=== PATIENT | female | born 1985 | race Hispanic/Latino ===

== ENCOUNTER 2018-02-01 15:10 | Observation (INO) | payer MEDICAID, OTHER ==
[~2018-02-01] VITALS: Ht 167.6 cm; Wt 61.2 kg
[2018-02-01 16:18] LABS: BASOPHILS % (AUTO) 1.3 % (0.0-5.0); EOSINOPHILS % (AUTO) 1.7 % (0.0-8.0); LYMPHOCYTES % (AUTO) 26.2 % (21.0-51.0); MEAN CORPUSCULAR HGB CONC 29.2 g/dL (32.0-36.0); MEAN CORPUSCULAR VOLUME 58.3 fL (79-99); MONOCYTES % (AUTO) 4.7 % (3.0-13.0); NEUTROPHILS % (AUTO) 66.1 % (40.0-77.0); NUCLEATED RED BLOOD CELLS 0.1 % (0.0-0.19); PLATELET COUNT (AUTO) 626 K/uL (130-400); RED BLOOD CELL COUNT(AUTO) 3.58 MIL/uL (4.00-5.50); RED CELL DISTRIBUTION WIDTH 21.8 % (11.0-15.5); WHITE BLOOD COUNT (AUTO) 9.6 K/uL (4.8-10.8)
[2018-02-01 16:21] LABS: HEMATOCRIT 20.9 % (36-48)
[2018-02-01 16:34] LABS: CARBON DIOXIDE 24 mmol/L (21-32); CHLORIDE 109 mmol/L (101-111); CREATININE 0.6 mg/dL (0.5-1.5); GLOMERULAR FILTR. RATE CALC 124 mL/min (>60); GLUCOSE,RANDOM 97 mg/dL (70-105); POTASSIUM 3.9 mmol/L (3.5-5.1); SODIUM SERUM 142 mmol/L (136-145); UREA NITROGEN, BLOOD 7 mg/dL (7-18)
[2018-02-01 16:47] LABS: ALANINE AMINOTRANSFERASE 17 U/L (12-78); ALBUMIN 3.4 g/dL (3.5-5.0); ASPARTATE AMINOTRANSFERASE 23 U/L (10-37); BILIRUBIN,TOTAL 0.7 mg/dL (0.2-1.0); CREATINE KINASE MB < 0.5 ng/mL (0.5-3.6); CREATINE KINASE, TOTAL 68 U/L (21-232); THYROID STIMULATING HORMONE 0.77 uIU/mL (0.36-3.74); TOTAL PROTEIN, SERUM 7.1 g/dL (6.0-8.3)
[2018-02-01 16:49] LABS: APPEARANCE,URINE Clear (CLEAR); BILIRUBIN,URINE Negative (NEGATIVE); COLOR,URINE Yellow (YELLOW); GLUCOSE, URINE (UA) Negative (NEGATIVE); KETONES,URINE Negative (NEGATIVE); LEUKOCYTE ESTERASE ,URINE Small (NEGATIVE); NITRATE,URINE Negative (NEGATIVE); OCCULT BLOOD,URINE Negative (NEGATIVE); PROTEIN,URINE Negative (NEGATIVE)
[2018-02-01 16:50] LABS: HCG,QUAL RESULT NEGATIVE (NEGATIVE)
[2018-02-01 16:57] LABS: AMPHET/METH SCREEN,URINE NEGATIVE (NEGATIVE); BARBITURATE SCREEN, URINE NEGATIVE (NEGATIVE); BENZODIAZEPINES SCREEN,URINE POSITIVE (NEGATIVE); CANNABINOID SCREEN,URINE NEGATIVE (NEGATIVE); COCAINE SCREEN,URINE NEGATIVE (NEGATIVE); OPIATE SCREEN,URINE POSITIVE (NEGATIVE); PHENCYCLIDINE SCREEN,URINE NEGATIVE (NEGATIVE)
[2018-02-01 16:58] LABS: BACTERIA,URINE Rare /HPF (None Seen); RBC,URINE 0-1 /HPF (0-1)
[2018-02-01 17:36] LABS: INR 0.98 (0.85-1.15); PARTIAL THROMBOPLASTIN TIME 26.6 SEC (26.3-35.5); PROTHROMBIN TIME 10.3 SEC (9.6-11.6)
[2018-02-01 20:22] VITALS: BP 143/86
[2018-02-01] MEDS ORDERED: ACETAMINOPHEN-CODEINE 300/30MG TAB PO SCH (21:30)
[2018-02-01] MEDS ORDERED: ACETAMINOPHEN-CODEINE 300/30MG TAB PO PRN (21:30)
[2018-02-01] MEDS ORDERED: ACETAMINOPHEN EXTRA STRENGTH 500 MG TABLET PO SCH (21:30)
[2018-02-01] MEDS ORDERED: DIPHENHYDRAMINE HCL 25 MG CAPSULE PO SCH (21:30)
[2018-02-02 00:30] VITALS: BP 131/82
[2018-02-02 04:00] VITALS: BP 127/81
[2018-02-02 05:57] LABS: HEMATOCRIT 27.2 % (36-48)
== END 2018-02-02 06:50 | disposition home or self-care (01) ==
LOC: EDH 15:10 → EDHIP 15:11 → WSH 20:15
PROVIDERS: ADMIT Obstetrics & Gynecology; ATTEND Obstetrics & Gynecology
DX: M79.89 Other specified soft tissue disorders (principal); M41.9 Scoliosis, unspecified; F41.9 Anxiety disorder, unspecified; G47.00 Insomnia, unspecified; F10.20 Alcohol dependence, uncomplicated; F17.210 Nicotine dependence, cigarettes, uncomplicated
CPT/HCPCS: 36415; 36430; 71046; 80053; 80305; 81001; 81025; 82550; 82553; 83880; 84443; 84484; 85014; 85018; 85025; 85610; 85730; 86850; 86870; 86900; 86901; 86905; 86922; G0378; J7030; P9016; Q0163

== ENCOUNTER 2019-02-09 20:54 | Emergency (ER) | payer MEDICAID ==
[~2019-02-09 20:54] MED LIST: HYDR-4453 PO
[2019-02-09 21:52] LABS: BASOPHILS % (AUTO) 0.7 % (0.0-5.0); EOSINOPHILS % (AUTO) 3.7 % (0.0-8.0); HEMATOCRIT 26.6 % (36-48); LYMPHOCYTES % (AUTO) 42.6 % (21.0-51.0); MEAN CORPUSCULAR HEMOGLOBIN 22.2 pg (27.0-33.0); MEAN CORPUSCULAR HGB CONC 29.7 g/dL (32.0-36.0); MEAN CORPUSCULAR VOLUME 74.6 fL (79-99); MONOCYTES % (AUTO) 9.9 % (3.0-13.0); NEUTROPHILS % (AUTO) 43.1 % (40.0-77.0); NUCLEATED RED BLOOD CELLS 0.2 % (0.0-0.19); PLATELET COUNT (AUTO) 354 K/uL (130-400); RED BLOOD CELL COUNT(AUTO) 3.57 MIL/uL (4.00-5.50); RED CELL DISTRIBUTION WIDTH 20.2 % (11.0-15.5); WHITE BLOOD COUNT (AUTO) 5.4 K/uL (4.8-10.8)
[2019-02-09 21:59] LABS: APPEARANCE,URINE Clear (CLEAR); BILIRUBIN,URINE Negative (NEGATIVE); COLOR,URINE Yellow (YELLOW); GLUCOSE, URINE (UA) Negative (NEGATIVE); KETONES,URINE Negative (NEGATIVE); LEUKOCYTE ESTERASE ,URINE Negative (NEGATIVE); NITRATE,URINE Negative (NEGATIVE); OCCULT BLOOD,URINE Negative (NEGATIVE); PH,URINE 7.5 (5.0-8.0); PROTEIN,URINE Negative (NEGATIVE); UROBILINOGEN,URINE 0.2 mg/dL (0.2-1.0)
[2019-02-09 22:03] LABS: CREATININE 0.6 mg/dL (0.5-1.5); POTASSIUM 3.8 mmol/L (3.5-5.1)
[2019-02-09 22:07] LABS: ALBUMIN 3.3 g/dL (3.5-5.0); BILIRUBIN,TOTAL 0.7 mg/dL (0.2-1.0); TOTAL PROTEIN, SERUM 7.3 g/dL (6.0-8.3)
== END 2019-02-09 23:06 | disposition home or self-care (01) ==
LOC: EDH 20:54
DX: K59.00 Constipation, unspecified (principal); D53.9 Nutritional anemia, unspecified; N92.0 Excessive and frequent menstruation with regular cycle; F11.20 Opioid dependence, uncomplicated; F41.9 Anxiety disorder, unspecified; Z90.49 Acquired absence of other specified parts of digestive tract
CPT/HCPCS: 36415; 80053; 81003; 81025; 83690; 85025

== ENCOUNTER 2019-09-08 20:44 | Emergency (ER) | payer MEDICAID ==
[2019-09-08] MEDS ORDERED: SODIUM CHLORIDE 0.9% 1000ML 1,000 ML IV ONE (21:24)
[2019-09-08 21:31] LABS: BASOPHILS % (AUTO) 0.7 % (0.0-5.0); EOSINOPHILS % (AUTO) 0.5 % (0.0-8.0); HEMATOCRIT 32.1 % (36-48); LYMPHOCYTES % (AUTO) 23.9 % (21.0-51.0); MEAN CORPUSCULAR HEMOGLOBIN 20.2 pg (27.0-33.0); MEAN CORPUSCULAR HGB CONC 30.5 g/dL (32.0-36.0); MONOCYTES % (AUTO) 3.9 % (3.0-13.0); PLATELET COUNT (AUTO) 497 K/uL (130-400); RED BLOOD CELL COUNT(AUTO) 4.86 MIL/uL (4.00-5.50); RED CELL DISTRIBUTION WIDTH 19.3 % (11.0-15.5); WHITE BLOOD COUNT (AUTO) 11.2 K/uL (4.8-10.8)
[2019-09-08 21:32] LABS: APPEARANCE,URINE Clear (CLEAR); BILIRUBIN,URINE Negative (NEGATIVE); COLOR,URINE Yellow (YELLOW); GLUCOSE, URINE (UA) Negative (NEGATIVE); KETONES,URINE Trace mg/dL (NEGATIVE); LEUKOCYTE ESTERASE ,URINE Moderate (NEGATIVE); NITRATE,URINE Positive (NEGATIVE); OCCULT BLOOD,URINE Negative (NEGATIVE); PH,URINE 6.5 (5.0-8.0); PROTEIN,URINE Negative (NEGATIVE)
[2019-09-08 21:40] LABS: AMPHET/METH SCREEN,URINE NEGATIVE (NEGATIVE); BARBITURATE SCREEN, URINE NEGATIVE (NEGATIVE); BENZODIAZEPINES SCREEN,URINE NEGATIVE (NEGATIVE); CANNABINOID SCREEN,URINE NEGATIVE (NEGATIVE); COCAINE SCREEN,URINE NEGATIVE (NEGATIVE); HCG,QUAL RESULT NEGATIVE (NEGATIVE); OPIATE SCREEN,URINE POSITIVE (NEGATIVE); PHENCYCLIDINE SCREEN,URINE NEGATIVE (NEGATIVE)
[2019-09-08 21:41] LABS: BACTERIA,URINE Few /HPF (None Seen); RBC,URINE 0-1 /HPF (0-1)
[2019-09-08 21:42] LABS: MUCUS,URINE Few LPF (None Seen); SQUAMOUS EPITHELIAL CELL,UR Few /HPF (0-2)
[2019-09-08 21:54] LABS: INR 1.01 (0.85-1.15); PARTIAL THROMBOPLASTIN TIME 23.5 SEC (26.3-35.5); PROTHROMBIN TIME 10.6 SEC (9.6-11.6)
[2019-09-08 21:58] LABS: CREATININE 0.7 mg/dL (0.5-1.5); TOTAL PROTEIN, SERUM 9.2 g/dL (6.0-8.3)
[2019-09-08] MEDS ORDERED: CEFTRIAXONE SODIUM 1 GM ONE (22:21)
[2019-09-08] MEDS ORDERED: POTASSIUM CHLORIDE 20 MEQ ERTAB PO ONE (22:24)
== END 2019-09-08 23:02 | disposition home or self-care (01) ==
LOC: EDH 20:44
DX: N39.0 Urinary tract infection, site not specified (principal); R53.1 Weakness; E87.6 Hypokalemia; D64.89 Other specified anemias; R42 Dizziness and giddiness; F41.9 Anxiety disorder, unspecified; F32.9 Major depressive disorder, single episode, unspecified
CPT/HCPCS: 36415; 80053; 80305; 81001; 81025; 82150; 82550; 83690; 84443; 84484; 85025; 85610; 85730; 87077; 87088; 87186; 93005; 96361; 96374; 99285; J0696; J7030

== ENCOUNTER 2020-01-04 13:14 | Inpatient (IN) | payer MEDICAID, OTHER ==
[~2020-01-04] VITALS: Ht 167.6 cm; Wt 47.7 kg
[2020-01-04 13:54] LABS: APPEARANCE,URINE Clear (CLEAR); BILIRUBIN,URINE Negative (NEGATIVE); COLOR,URINE Dark Yellow (YELLOW); GLUCOSE, URINE (UA) Negative (NEGATIVE); KETONES,URINE 15 mg/dL (NEGATIVE); LEUKOCYTE ESTERASE ,URINE Negative (NEGATIVE); NITRATE,URINE Negative (NEGATIVE); OCCULT BLOOD,URINE Negative (NEGATIVE); PH,URINE 6.5 (5.0-8.0); PROTEIN,URINE Trace mg/dL (NEGATIVE)
[2020-01-04 13:55] LABS: HCG,QUAL RESULT NEGATIVE (NEGATIVE)
[2020-01-04 13:57] LABS: BASOPHILS % (AUTO) 0.5 % (0.0-5.0); EOSINOPHILS % (AUTO) 0.2 % (0.0-8.0); HEMATOCRIT 27.9 % (36-48); MEAN CORPUSCULAR HEMOGLOBIN 15.1 pg (27.0-33.0); MEAN CORPUSCULAR HGB CONC 25.8 g/dL (32.0-36.0); MEAN CORPUSCULAR VOLUME 58.6 fL (79-99); MONOCYTES % (AUTO) 5.2 % (3.0-13.0); NEUTROPHILS % (AUTO) 63.9 % (40.0-77.0); PLATELET COUNT (AUTO) 253 K/uL (130-400); RED BLOOD CELL COUNT(AUTO) 4.76 MIL/uL (4.00-5.50); RED CELL DISTRIBUTION WIDTH 20.1 % (11.0-15.5); WHITE BLOOD COUNT (AUTO) 4.3 K/uL (4.8-10.8)
[2020-01-04 14:01] LABS: AMPHET/METH SCREEN,URINE POSITIVE (NEGATIVE); BARBITURATE SCREEN, URINE NEGATIVE (NEGATIVE); BENZODIAZEPINES SCREEN,URINE POSITIVE (NEGATIVE); CANNABINOID SCREEN,URINE NEGATIVE (NEGATIVE); COCAINE SCREEN,URINE NEGATIVE (NEGATIVE); OPIATE SCREEN,URINE POSITIVE (NEGATIVE); PHENCYCLIDINE SCREEN,URINE NEGATIVE (NEGATIVE)
[2020-01-04 14:07] LABS: CARBON DIOXIDE 26 mmol/L (21-32); CHLORIDE 101 mmol/L (101-111); CREATININE 0.6 mg/dL (0.5-1.5); GLOMERULAR FILTR. RATE CALC 123 mL/min (>60); GLUCOSE,RANDOM 119 mg/dL (70-105); POTASSIUM 3.6 mmol/L (3.5-5.1); SODIUM SERUM 136 mmol/L (136-145); UREA NITROGEN, BLOOD 9 mg/dL (7-18)
[2020-01-04 14:12] LABS: ACETAMINOPHEN 9 mcg/mL (10-30); ALANINE AMINOTRANSFERASE 119 U/L (12-78); ALBUMIN 4.3 g/dL (3.5-5.0); ASPARTATE AMINOTRANSFERASE 364 U/L (10-37); SALICYLATE 2.9 mg/dL (2.8-20.0); TOTAL PROTEIN, SERUM 8.4 g/dL (6.0-8.3)
[2020-01-04 14:13] LABS: BACTERIA,URINE Rare /HPF (None Seen); MUCUS,URINE Few LPF (None Seen); RBC,URINE 0-1 /HPF (0-1); SQUAMOUS EPITHELIAL CELL,UR Rare /HPF (0-2); WBC,URINE 0-1 /HPF (0-1)
[2020-01-04 14:27] LABS: ALCOHOL, BLOOD < 3 mg/dL (0-10)
[2020-01-04] MEDS ORDERED: WATER IV SCH ×3 (16:00→21:00)
[2020-01-04] MEDS ORDERED: DEXTROSE 5% IV SCH ×3 (16:00→21:00)
[2020-01-04] MEDS ORDERED: ACETYLCYSTEINE IV SCH ×3 (16:00→21:00)
[2020-01-04] MEDS ORDERED: SODIUM CHLORIDE 0.9% 1000ML 1,000 ML IV SCH (20:05)
[2020-01-04] MEDS ORDERED: ACETAMINOPHEN 325 MG TAB PO PRN ×2 (20:15)
[2020-01-04] MEDS ORDERED: ONDANSETRON HCL 4 MG/2 ML VIAL IV PRN (20:15)
[2020-01-04] MEDS ORDERED: LORAZEPAM 2 MG/ML 1 ML VIAL ONE (20:27)
[2020-01-04] MEDS: FAMOTIDINE/PF 20 MG/2 ML VIAL IV SCH (21:00)
[2020-01-04] MEDS ORDERED: LORAZEPAM 2 MG/ML 1 ML VIAL IM PRN (21:00)
[2020-01-04] MEDS ORDERED: CHLORDIAZEPOXIDE HCL 25 MG CAP ONE (21:16)
[2020-01-04] MEDS ORDERED: LEVETIRACETAM 500 MG TABLET PO ONE (21:16)
[2020-01-04 21:36] LABS: POTASSIUM 3.5 mmol/L (3.5-5.1)
[2020-01-04 22:00] LABS: CREATININE 0.8 mg/dL (0.5-1.5)
[2020-01-05 00:53] LABS: HEMATOCRIT 26.9 % (36-48); MEAN CORPUSCULAR HEMOGLOBIN 15.4 pg (27.0-33.0); MEAN CORPUSCULAR HGB CONC 26.8 g/dL (32.0-36.0); MEAN CORPUSCULAR VOLUME 57.5 fL (79-99); PLATELET COUNT (AUTO) 271 K/uL (130-400); RED BLOOD CELL COUNT(AUTO) 4.68 MIL/uL (4.00-5.50); RED CELL DISTRIBUTION WIDTH 19.5 % (11.0-15.5); WHITE BLOOD COUNT (AUTO) 4.8 K/uL (4.8-10.8)
[2020-01-05 01:04] LABS: ALBUMIN 3.8 g/dL (3.5-5.0); BILIRUBIN,DIRECT 0.2 mg/dL (0.0-0.3); BILIRUBIN,TOTAL 0.8 mg/dL (0.2-1.0); TOTAL PROTEIN, SERUM 7.9 g/dL (6.0-8.3)
[2020-01-05 01:15] LABS: INR 1.07 (0.85-1.15); PROTHROMBIN TIME 11.2 SEC (9.6-11.6)
[2020-01-05 06:13] LABS: AMMONIA 13 umol/L (11-32)
[2020-01-05 06:23] LABS: ALANINE AMINOTRANSFERASE 93 U/L (12-78); ALBUMIN 3.7 g/dL (3.5-5.0); ASPARTATE AMINOTRANSFERASE 100 U/L (10-37); BILIRUBIN,DIRECT 0.2 mg/dL (0.0-0.3); BILIRUBIN,TOTAL 0.8 mg/dL (0.2-1.0); CARBON DIOXIDE 22 mmol/L (21-32); CHLORIDE 100 mmol/L (101-111); CREATININE 0.5 mg/dL (0.5-1.5); GLOMERULAR FILTR. RATE CALC 152 mL/min (>60); GLUCOSE,RANDOM 154 mg/dL (70-105); SODIUM SERUM 136 mmol/L (136-145); TOTAL PROTEIN, SERUM 7.4 g/dL (6.0-8.3); UREA NITROGEN, BLOOD 5 mg/dL (7-18)
[2020-01-05 06:24] LABS: ACETAMINOPHEN < 1 mcg/mL (10-30)
[2020-01-05] MEDS ORDERED: POTASSIUM CHLORIDE 10% ELIXIR 20 MEQ/15 ML UDCUP PO PRN (06:30)
[2020-01-05] MEDS ORDERED: LIDOCAINE HCL-MPF 1% 2ML VIAL IJ PRN (06:30)
[2020-01-05] MEDS ORDERED: POTASSIUM CHLORIDE 20MEQ/100ML 100 ML IV PRN (06:30)
[2020-01-05] MEDS ORDERED: LIDOCAINE HCL-MPF 1% 2ML VIAL ONE (06:34)
[2020-01-05] MEDS ORDERED: POTASSIUM CHLORIDE 20MEQ/100ML 100 ML IV ONE (06:34)
[2020-01-05 07:05] LABS: BASOPHILS % (AUTO) 0.4 % (0.0-5.0); EOSINOPHILS % (AUTO) 0.2 % (0.0-8.0); LYMPHOCYTES % (AUTO) 37.3 % (21.0-51.0); MEAN CORPUSCULAR HEMOGLOBIN 15.3 pg (27.0-33.0); MEAN CORPUSCULAR HGB CONC 26.8 g/dL (32.0-36.0); MEAN CORPUSCULAR VOLUME 57.1 fL (79-99); MONOCYTES % (AUTO) 7.7 % (3.0-13.0); NEUTROPHILS % (AUTO) 54.2 % (40.0-77.0); PLATELET COUNT (AUTO) 238 K/uL (130-400); RED BLOOD CELL COUNT(AUTO) 4.38 MIL/uL (4.00-5.50); RED CELL DISTRIBUTION WIDTH 19.8 % (11.0-15.5); WHITE BLOOD COUNT (AUTO) 4.5 K/uL (4.8-10.8)
[2020-01-05] MEDS ORDERED: CHLORDIAZEPOXIDE HCL 25 MG CAP PO PRN (07:30)
[2020-01-05] MEDS: THIAMINE HCL 100 MG, FOLIC ACID 1 MG, M.V.I. IV [ADULT] 10 ML in SODIUM CHLORIDE 0.9% 1... IV SCH (07:30)
[2020-01-05] MEDS ORDERED: LORAZEPAM 2 MG/ML 1 ML VIAL IVP PRN ×3 (07:30→17:45)
[2020-01-05] MEDS ORDERED: PHARMACY COMMUNICATION MISC PRN (07:30)
[2020-01-05 08:05] LABS: MAGNESIUM 1.9 mg/dL (1.80-2.40); PHOSPHORUS 2.5 mg/dL (2.5-4.9)
[2020-01-05] MEDS ORDERED: CHLORDIAZEPOXIDE HCL 25 MG CAP ONE ×2 (08:20→15:21)
[2020-01-05] MEDS: FAMOTIDINE/PF 20 MG/2 ML VIAL IV SCH ×2 (09:00→20:53)
[2020-01-05] MEDS: FOLIC ACID 1 MG TABLET PO SCH (09:00)
[2020-01-05] MEDS: THIAMINE HCL 100 MG/ML 2ML VIAL IM SCH (09:00)
[2020-01-05] MEDS: MULTIVITAMIN TABLET PO SCH (09:00)
[2020-01-05 09:24] LABS: CREATINE KINASE, TOTAL 41 U/L (21-232); GAMMA GLUTAMYL TRANSFERASE 248 U/L (5-85)
[2020-01-05] MEDS ORDERED: SODIUM CHLORIDE 0.9% 500ML 500 ML IV ONE (13:31)
[2020-01-05 16:10] VITALS: BP 106/69
[2020-01-05 17:23] LABS: HEMATOCRIT 28.4 % (36-48); MEAN CORPUSCULAR HEMOGLOBIN 16.9 pg (27.0-33.0); MEAN CORPUSCULAR HGB CONC 27.5 g/dL (32.0-36.0); MEAN CORPUSCULAR VOLUME 61.6 fL (79-99); PLATELET COUNT (AUTO) 236 K/uL (130-400); RED BLOOD CELL COUNT(AUTO) 4.61 MIL/uL (4.00-5.50); RED CELL DISTRIBUTION WIDTH 24.4 % (11.0-15.5); WHITE BLOOD COUNT (AUTO) 4.3 K/uL (4.8-10.8)
[2020-01-05 17:49] LABS: ALBUMIN 3.6 g/dL (3.5-5.0); CREATININE 0.6 mg/dL (0.5-1.5); TOTAL PROTEIN, SERUM 7.6 g/dL (6.0-8.3)
[2020-01-05] MEDS: POTASSIUM CHLORIDE 20 MEQ ERTAB PO PRN ×3 (18:01→23:14)
[2020-01-05 19:30] VITALS: BP 110/63
[2020-01-05] MEDS ORDERED: IBUPROFEN 200 MG TAB PO PRN (20:45)
[2020-01-05] MEDS: IBUPROFEN 600 MG TABLET ONE ×2 (20:55→22:38)
[2020-01-05 23:00] VITALS: BP 109/59
[2020-01-06 03:21] VITALS: BP 91/53
[2020-01-06 04:22] LABS: BASOPHILS % (AUTO) 0.4 % (0.0-5.0); EOSINOPHILS % (AUTO) 1.2 % (0.0-8.0); HEMATOCRIT 27.2 % (36-48); LYMPHOCYTES % (AUTO) 61.1 % (21.0-51.0); MEAN CORPUSCULAR HEMOGLOBIN 17.3 pg (27.0-33.0); MEAN CORPUSCULAR HGB CONC 27.9 g/dL (32.0-36.0); MEAN CORPUSCULAR VOLUME 61.8 fL (79-99); MONOCYTES % (AUTO) 9.3 % (3.0-13.0); PLATELET COUNT (AUTO) 199 K/uL (130-400); RED CELL DISTRIBUTION WIDTH 24.1 % (11.0-15.5)
[2020-01-06 04:45] LABS: ALBUMIN 3.5 g/dL (3.5-5.0); BILIRUBIN,TOTAL 0.8 mg/dL (0.2-1.0); CREATININE 0.5 mg/dL (0.5-1.5); POTASSIUM 3.7 mmol/L (3.5-5.1); TOTAL PROTEIN, SERUM 7.1 g/dL (6.0-8.3)
[2020-01-06] MEDS: POTASSIUM CHLORIDE 20 MEQ ERTAB PO PRN (06:10)
[2020-01-06 08:00] VITALS: BP 110/62
[2020-01-06] MEDS: MULTIVITAMIN TABLET PO SCH (11:05)
[2020-01-06] MEDS: FAMOTIDINE/PF 20 MG/2 ML VIAL IV SCH ×2 (11:05→22:38)
[2020-01-06] MEDS: THIAMINE HCL 100 MG, FOLIC ACID 1 MG, M.V.I. IV [ADULT] 10 ML in SODIUM CHLORIDE 0.9% 1... IV SCH (11:05)
[2020-01-06] MEDS: FOLIC ACID 1 MG TABLET PO SCH (11:05)
[2020-01-06] MEDS: THIAMINE HCL 100 MG/ML 2ML VIAL IM SCH (11:06)
[2020-01-06 11:57] VITALS: BP 111/75
--- NOTE | 2020-01-06 13:45 | NUR ---
INITIAL Patient lives with boyfriend, Raphael Day, [phone]. No home services or DME. Patient is able to complete ADL's independently Pharmacy is [facility] in [place]. DCP is home. Patient has no insurance or benefits. She is a [place] citizen and works. Patient was provided with community resources for post hospitalization follow up. Patient was also provided with Good RX card for prescriptions and educated on [employer] $4 medication program and [facility] $5 medication program. Patient is being assisted by [employer] for financial matters. Addendum: 01/06/20 at 1348 by DOMI CHOWDHURY Amended: Links added.
--- NOTE | 2020-01-06 13:51 | NUR ---
Positive Drug Screen/Suicide attempt SW met with patient to discuss history of drug abuse and suicide attempt. Patient denies attempting to harm self. She stated that she had taken Vicodin which is prescribed by her pain management doctor and became disoriented. Patient did admit that she suffers from depression and anxiety and had been dx in the past with Major Depression. Patient reports that she was receiving treatment from [facility] ([facility])last year and was last seen about 6 months ago. Patient denies suicidal/homicidal ideations. She also denies auditory/visual hallucinations. Patient reports that her mother also suffered from depression but there is no hx of suicide attempts from anyone in her family. Patient continues on a 1:1 observation at this time. Patient only admits to taking Vicodin for her back pain. Denies other drug use. Patient's boyfriend at bedside also states that patient did not want to harm self and everything was a "big misunderstanding". SW informed patient and her boyfriend, Raphael Day, that once patient is medically cleared [facility] screener would come by to screen her for possible inpatient psychiatric hospitalization. Patient in agreement. SW will continue to follow up with patient as needed.
[2020-01-06 15:47] VITALS: BP 110/62
[2020-01-06 19:36] VITALS: BP 109/68
[2020-01-06 21:37] LABS: RETICULOCYTE % (AUTO) 0.47 % (0.42-2.23)
[2020-01-06 23:55] VITALS: BP 103/59
[2020-01-07] VITALS (7 sets, daily range): BP systolic 102–134; BP diastolic 54–70
[2020-01-07 05:25] LABS: HEMATOCRIT 27.4 % (36-48); MEAN CORPUSCULAR HEMOGLOBIN 16.7 pg (27.0-33.0); NUCLEATED RED BLOOD CELLS 0.3 % (0.0-0.19); PLATELET COUNT (AUTO) 192 K/uL (130-400); RED BLOOD CELL COUNT(AUTO) 4.42 MIL/uL (4.00-5.50); RED CELL DISTRIBUTION WIDTH 23.9 % (11.0-15.5); WHITE BLOOD COUNT (AUTO) 6.3 K/uL (4.8-10.8)
[2020-01-07 05:52] LABS: ALBUMIN 3.3 g/dL (3.5-5.0); BILIRUBIN,TOTAL 0.5 mg/dL (0.2-1.0); CREATININE 0.5 mg/dL (0.5-1.5); POTASSIUM 3.2 mmol/L (3.5-5.1); TOTAL PROTEIN, SERUM 6.9 g/dL (6.0-8.3)
[2020-01-07 06:54] LABS: LYMPHOCYTES % (MANUAL) 58 % (22-44); MONOCYTES % (MANUAL) 4 % (2-9); SEGMENTED NEUTROPHILS % 38 % (40-70)
[2020-01-07 06:55] LABS: MAN.DIFF COMMENT-IMPRESSION MANUAL DIFFERENTIAL; PLATELET MORPHOLOGY COMMENT ADEQUATE
[2020-01-07] MEDS: THIAMINE HCL 100 MG/ML 2ML VIAL IM SCH (09:00)
[2020-01-07] MEDS: FOLIC ACID 1 MG TABLET PO SCH (09:00)
[2020-01-07] MEDS: MULTIVITAMIN TABLET PO SCH (11:23)
[2020-01-07] MEDS: FAMOTIDINE/PF 20 MG/2 ML VIAL IV SCH ×2 (11:23→20:38)
[2020-01-07] MEDS: THIAMINE HCL 100 MG, FOLIC ACID 1 MG, M.V.I. IV [ADULT] 10 ML in SODIUM CHLORIDE 0.9% 1... IV SCH (11:24)
[2020-01-07] MEDS: LEVETIRACETAM 250 MG TABLET PO SCH ×2 (15:06→20:39)
--- NOTE | 2020-01-07 16:30 | NUR ---
Dr Dey Office has been called to notify him of consult. Machine answered and stated that the office is closed. No other numbers for Dr. Dey are available at this time
--- NOTE | 2020-01-07 16:40 | NUR ---
Dr. Arndt's office has been called to be notified of consult at this time
--- NOTE | 2020-01-07 16:45 | NUR ---
I have spoken with Dr. Arndt in regards to Patient status. Dr. Arndt stated he will see patient as an out patient and recomends focusing on patient's primary diagnosis while in the hospital.
[2020-01-07] MEDS: LORAZEPAM 2 MG/ML 1 ML VIAL IVP PRN (20:39)
[2020-01-07] MEDS ORDERED: LEVETIRACETAM 250 MG TABLET PO SCH (21:00)
[2020-01-08 04:19] LABS: BASOPHILS % (AUTO) 0.4 % (0.0-5.0); EOSINOPHILS % (AUTO) 2.3 % (0.0-8.0); HEMATOCRIT 25.9 % (36-48); LYMPHOCYTES % (AUTO) 44.9 % (21.0-51.0); MEAN CORPUSCULAR HEMOGLOBIN 17.2 pg (27.0-33.0); MEAN CORPUSCULAR HGB CONC 27.8 g/dL (32.0-36.0); MONOCYTES % (AUTO) 5.3 % (3.0-13.0); NEUTROPHILS % (AUTO) 46.6 % (40.0-77.0); PLATELET COUNT (AUTO) 137 K/uL (130-400); RED BLOOD CELL COUNT(AUTO) 4.18 MIL/uL (4.00-5.50); RED CELL DISTRIBUTION WIDTH 24.7 % (11.0-15.5); WHITE BLOOD COUNT (AUTO) 7.8 K/uL (4.8-10.8)
[2020-01-08 04:47] LABS: ALBUMIN 3.2 g/dL (3.5-5.0); BILIRUBIN,TOTAL 0.5 mg/dL (0.2-1.0); CREATININE 0.5 mg/dL (0.5-1.5); POTASSIUM 3.3 mmol/L (3.5-5.1); TOTAL PROTEIN, SERUM 6.6 g/dL (6.0-8.3)
[2020-01-08 05:33] VITALS: BP 98/64
[2020-01-08 05:58] VITALS: BP 115/72
[2020-01-08] MEDS: LORAZEPAM 2 MG/ML 1 ML VIAL IVP PRN (05:58)
[2020-01-08 05:59] VITALS: BP 115/72
[2020-01-08] MEDS: POTASSIUM CHLORIDE 20 MEQ ERTAB PO PRN ×3 (06:49→11:49)
[2020-01-08 07:52] VITALS: BP 114/74
--- NOTE | 2020-01-08 08:15 | NUR ---
AM ASSESSMENT PT LAYING IN BED, WATCHING TV. A/O X 3. NO SOB. NO DISTRESS NOTED. DENIES CHEST PAIN OR DISCOMFORT. DENIES PALPITATIONS. TELE: SR. DENIES N/V AND/OR DIARRHEA. UP AD MEIR. INSTRUCTED TO CALL FOR ASSISTANCE. CALL MARICRUZ W/IN REACH. CURRENT 1:1 SITTER, SITTER @ BEDSIDE.
[2020-01-08] MEDS: MULTIVITAMIN TABLET PO SCH (08:34)
[2020-01-08] MEDS: LEVETIRACETAM 250 MG TABLET PO SCH (08:35)
[2020-01-08] MEDS: LORAZEPAM 1 MG TABLET PO PRN ×2 (08:43→16:35)
[2020-01-08] MEDS ORDERED: FAMOTIDINE 20MG TAB 20 MG TAB PO SCH (09:00)
[2020-01-08] MEDS ORDERED: COMPOUND IV MISC 1 EACH IVSOLN MISC PRN (09:30)
[2020-01-08] MEDS ORDERED: IRON SUCROSE COMPLEX 100 MG in SODIUM CHLORIDE 0.9% 50 ML IV SCH (10:00)
[2020-01-08] MEDS ORDERED: POTASSIUM CHLORIDE 20 MEQ ERTAB PO SCH ×2 (10:15→12:15)
[2020-01-08 11:27] VITALS: BP 107/66
--- NOTE | 2020-01-08 11:37 | NUR ---
[facility] Phone call placed requesting TT designer writer to visit with pt. Pending return call/visit from designer writer.
[2020-01-08] MEDS ORDERED: EPOETIN ALFA 10,000 UNIT/ML VIAL SQ SCH (12:00)
[2020-01-08 14:22] LABS: CREATININE 0.6 mg/dL (0.5-1.5); POTASSIUM 3.8 mmol/L (3.5-5.1)
[2020-01-08 15:49] VITALS: BP 121/79
--- NOTE | 2020-01-08 18:55 | NUR ---
DISCHARGE VERBAL & WRITTEN DISCHARGE INSTRUCTIONS REVIEWED & GIVEN TO PT & SPOUSE. QUESTIONS ENCOURAGED & CLARIFIED. PROPER CARE & PREVENTION OF TYLENOL OVERDOSE REVIEWED. NO MEDICATIONS PRESCRIBED. PT TO F/U @ [facility] TOMORROW, 01/09/2020. INFORMED PT TO F/U W/PRIMARY CARE PHYSICIAN IN 5-7 DAYS. TELE [facility] REMOVED. IV DC'D @ THIS TIME. PT & SPOUSE TO GATHER PERSONAL BELONGINGS. WILL NOTIFY STAFF WHEN READY TO BE TAKEN TO PRIVATE VEHICLE.
--- NOTE | 2020-01-08 19:10 | NUR ---
DISCHARGE PT TAKEN TO PRIVATE VEHICLE VIA WC BY Meryl MONTENEGRO PCP, ACCOMPANIED BY SPOUSE. NO DISTRESS NOTED.
[2020-01-08] MEDS ORDERED: FOLIC ACID 1 MG TABLET PO SCH (21:00)
== END 2020-01-08 19:10 | disposition home or self-care (01) | DRG 918 ==
LOC: EDH 13:14 → EDHIP 13:15 → UNDOADMIN 13:15 → 2BH 01-05 14:55 → 2AH 01-05 15:25
PROVIDERS: ADMIT Internal Medicine; ATTEND Internal Medicine
PROC: 30233N1 Transfusion of Nonautologous Red Blood Cells into Peripheral Vein, Percutaneous Approach (ICD-10-PCS; 2020-01-05)
PROC: 4A00X4Z Measurement of Central Nervous Electrical Activity, External Approach (ICD-10-PCS; principal; 2020-01-08)
DX: T39.1X2A Poisoning by 4-Aminophenol derivatives, intentional self-harm, initial encounter (principal); R45.851 Suicidal ideations; T40.602A Poisoning by unspecified narcotics, intentional self-harm, initial encounter; R56.9 Unspecified convulsions; T42.4X2A Poisoning by benzodiazepines, intentional self-harm, initial encounter; F41.9 Anxiety disorder, unspecified; D64.9 Anemia, unspecified; E87.6 Hypokalemia; G89.29 Other chronic pain; K59.09 Other constipation; M54.9 Dorsalgia, unspecified; Z90.49 Acquired absence of other specified parts of digestive tract; Z82.61 Family history of arthritis; Z82.49 Family history of ischemic heart disease and other diseases of the circulatory system; Y92.89 Other specified places as the place of occurrence of the external cause
CPT/HCPCS: 36415; 70450; 70551; 76700; 80048; 80053; 80076; 80305; 81001; 81025; 82140; 82270; 82550; 82607; 82746; 82977; 83540; 83550; 83735; 84100; 84425; 85025; 85027; 85045; 85610; 86850; 86870; 86900; 86901; 86905; 86922; 93005; 95816; 99291; G0378; G0480; G0481; J0132; J0885; J1756; J2060; J3411; J3480; J3490; J7030; J7040; J7060; J7070; P9016

== ENCOUNTER 2020-03-26 09:59 | Emergency (ER) | payer OTHER ==
[2020-03-26 10:31] LABS: BASOPHILS % (AUTO) 0.4 % (0.0-5.0); EOSINOPHILS % (AUTO) 0.1 % (0.0-8.0); HEMATOCRIT 32.4 % (36-48); LYMPHOCYTES % (AUTO) 13.6 % (21.0-51.0); MEAN CORPUSCULAR HEMOGLOBIN 18.4 pg (27.0-33.0); MEAN CORPUSCULAR HGB CONC 27.8 g/dL (32.0-36.0); MEAN CORPUSCULAR VOLUME 66.1 fL (79-99); MONOCYTES % (AUTO) 7.2 % (3.0-13.0); NEUTROPHILS % (AUTO) 78.3 % (40.0-77.0); PLATELET COUNT (AUTO) 492 K/uL (130-400); RED CELL DISTRIBUTION WIDTH 18.5 % (11.0-15.5); WHITE BLOOD COUNT (AUTO) 12.7 K/uL (4.8-10.8)
[2020-03-26 10:34] LABS: CREATININE 0.8 mg/dL (0.5-1.5); POTASSIUM 3.3 mmol/L (3.5-5.1)
[2020-03-26 10:39] LABS: ALBUMIN 4.6 g/dL (3.5-5.0); BILIRUBIN,TOTAL 1.4 mg/dL (0.2-1.0); TOTAL PROTEIN, SERUM 8.6 g/dL (6.0-8.3)
[2020-03-26 10:59] LABS: AMPHET/METH SCREEN,URINE NEGATIVE (NEGATIVE); BARBITURATE SCREEN, URINE NEGATIVE (NEGATIVE); BENZODIAZEPINES SCREEN,URINE NEGATIVE (NEGATIVE); CANNABINOID SCREEN,URINE POSITIVE (NEGATIVE); COCAINE SCREEN,URINE NEGATIVE (NEGATIVE); OPIATE SCREEN,URINE NEGATIVE (NEGATIVE); PHENCYCLIDINE SCREEN,URINE NEGATIVE (NEGATIVE)
[2020-03-26 11:21] LABS: ACETAMINOPHEN < 1 mcg/mL (10-30); ALCOHOL, BLOOD < 3 mg/dL (0-10); SALICYLATE < 2.8 mg/dL (2.8-20.0)
[2020-03-27] MEDS ORDERED: ACETAMINOPHEN EXTRA STRENGTH 500 MG TABLET ONE (00:30)
[2020-03-27] MEDS ORDERED: ZIPRASIDONE MESYLATE 20 MG/VIAL IM ONE (02:29)
== END 2020-03-27 14:08 | disposition short-term general hospital (02) ==
LOC: EDH 09:59
DX: F29 Unspecified psychosis not due to a substance or known physiological condition (principal); F41.9 Anxiety disorder, unspecified; F31.9 Bipolar disorder, unspecified; G89.29 Other chronic pain; Z72.0 Tobacco use
CPT/HCPCS: 36415; 80053; 80305; 81025; 82550; 85025; 96372; 99285; G0480 ×2; G0481; J3486

== ENCOUNTER 2021-06-11 13:38 | Emergency (ER) | payer SELFPAY ==
[~2021-06-11] VITALS: Ht 165.1 cm; Wt 56.7 kg
[2021-06-11 13:39] VITALS: BP 118/83
[2021-06-11] MEDS ORDERED: 0.9%NACL 1000ML 1,000 ML IV ONE (14:30)
[2021-06-11 14:56] LABS: BASOPHILS % (AUTO) 0.8 % (0.0-5.0); EOSINOPHILS % (AUTO) 1.2 % (0.0-8.0); HEMATOCRIT 36.9 % (36-48); LYMPHOCYTES % (AUTO) 26.5 % (21.0-51.0); MEAN CORPUSCULAR HEMOGLOBIN 15.8 pg (27.0-33.0); MEAN CORPUSCULAR HGB CONC 26.8 g/dL (32.0-36.0); MONOCYTES % (AUTO) 4.7 % (3.0-13.0); NEUTROPHILS % (AUTO) 66.5 % (40.0-77.0); PLATELET COUNT (AUTO) 406 K/uL (130-400); RED BLOOD CELL COUNT(AUTO) 6.25 MIL/uL (4.00-5.50); RED CELL DISTRIBUTION WIDTH 21.4 % (11.0-15.5); WHITE BLOOD COUNT (AUTO) 9.4 K/uL (4.8-10.8)
[2021-06-11 15:21] LABS: CREATININE 0.9 mg/dL (0.5-1.5); POTASSIUM 3.4 mmol/L (3.5-5.1)
[2021-06-11 15:26] LABS: ALBUMIN 4.6 g/dL (3.5-5.0); TOTAL PROTEIN, SERUM 9.6 g/dL (6.0-8.3)
[2021-06-11 16:33] LABS: APPEARANCE,URINE Clear (CLEAR); COLOR,URINE Yellow (YELLOW)
[2021-06-11 16:34] LABS: BILIRUBIN,URINE Negative (NEGATIVE); GLUCOSE, URINE (UA) Negative (NEGATIVE); KETONES,URINE >=160 mg/dL (NEGATIVE); LEUKOCYTE ESTERASE ,URINE Small (NEGATIVE); NITRATE,URINE Negative (NEGATIVE); OCCULT BLOOD,URINE Moderate (NEGATIVE); PROTEIN,URINE POS 1+ mg/dL (NEGATIVE)
[2021-06-11 16:36] LABS: HCG,QUAL RESULT NEGATIVE (NEGATIVE)
[2021-06-11 16:49] LABS: BACTERIA,URINE Few /HPF (None Seen); MUCUS,URINE Moderate LPF (None Seen); SQUAMOUS EPITHELIAL CELL,UR Moderate /HPF (0-2)
[2021-06-11 17:36] VITALS: BP 118/75
== END 2021-06-11 17:38 | disposition home or self-care (01) ==
LOC: EDH 13:38
DX: E86.0 Dehydration (principal); T43.625A Adverse effect of amphetamines, initial encounter; F13.10 Sedative, hypnotic or anxiolytic abuse, uncomplicated; F11.20 Opioid dependence, uncomplicated; F14.10 Cocaine abuse, uncomplicated; Y92.89 Other specified places as the place of occurrence of the external cause
CPT/HCPCS: 36415; 80053; 81001; 81025; 82550; 84484; 85025; 87088; 93005; 96360; 96361; J7030

== ENCOUNTER 2022-03-25 14:25 | Emergency (ER) | payer OTHER ==
[~2022-03-25] VITALS: Ht 167.6 cm; Wt 59.0 kg
[2022-03-25 16:00] LABS: APPEARANCE,URINE Cloudy (CLEAR); BILIRUBIN,URINE Negative (NEGATIVE); COLOR,URINE Yellow (YELLOW); GLUCOSE, URINE (UA) Negative (NEGATIVE); KETONES,URINE Negative (NEGATIVE); LEUKOCYTE ESTERASE ,URINE Moderate (NEGATIVE); NITRATE,URINE Negative (NEGATIVE); OCCULT BLOOD,URINE Negative (NEGATIVE); PH,URINE 8.5 (5.0-8.0); PROTEIN,URINE Negative (NEGATIVE)
[2022-03-25 16:11] LABS: RBC,URINE 0-1 /HPF (0-1)
[2022-03-25 16:12] LABS: BACTERIA,URINE Rare /HPF (None Seen)
[2022-03-25 16:13] LABS: SQUAMOUS EPITHELIAL CELL,UR Few /HPF (0-2); TRANSITIONAL EPI CELLS,URINE Few /HPF (None Seen)
[2022-03-25] MEDS ORDERED: LIDOCAINE HCL 2% JELLY 5 ML TP SCH (17:00)
[2022-03-25 18:26] VITALS: BP 120/75
== END 2022-03-25 18:25 | disposition home or self-care (01) ==
LOC: EDH 14:25
DX: K14.6 Glossodynia (principal); K08.89 Other specified disorders of teeth and supporting structures; F19.10 Other psychoactive substance abuse, uncomplicated
CPT/HCPCS: 81001; 87088